=== PATIENT | male | born 1955 | race Caucasian/White ===

== ENCOUNTER 2017-12-07 06:56 | Day surgery (SDC) | payer BC ==
[~2017-12-07] VITALS: Ht 172.7 cm; Wt 67.5 kg
[~2017-12-07 06:56] MED LIST: HCTZ PO
[2017-12-07 07:11] VITALS: BP 142/98; PULSE 67; TEMP 97.9
[2017-12-07] MEDS ORDERED: ZESTRIL 10MG10 MG PO (07:20)
[2017-12-07] MEDS ORDERED: MULTIPLE VITAMI1 TA5 PO (07:20)
[2017-12-07] MEDS ORDERED: THE MEDICINE S200 M2 PO (07:20)
[2017-12-07] MEDS ORDERED: LIPITOR 10MG10 MG PO (07:20)
[2017-12-07] MEDS ORDERED: D-2000 90 MG-201 TAB PO (07:21)
[2017-12-07 08:40] VITALS: BP 119/83; PULSE 72; TEMP 97.6
[2017-12-07 08:55] VITALS: BP 118/84; PULSE 66
[2017-12-07 09:10] VITALS: BP 122/79; PULSE 70
== END 2017-12-07 09:30 | disposition home or self-care (01) ==
LOC: SDCO 06:56
DX: Z12.11 Encounter for screening for malignant neoplasm of colon (principal); D12.8 Benign neoplasm of rectum; K57.30 Diverticulosis of large intestine without perforation or abscess without bleeding; I10 Essential (primary) hypertension; E78.00 Pure hypercholesterolemia, unspecified; K58.9 Irritable bowel syndrome, unspecified; I48.91 Unspecified atrial fibrillation; F41.9 Anxiety disorder, unspecified; Z86.718 Personal history of other venous thrombosis and embolism; Z80.52 Family history of malignant neoplasm of bladder; Z80.0 Family history of malignant neoplasm of digestive organs; Z82.61 Family history of arthritis; Z82.3 Family history of stroke; Z87.891 Personal history of nicotine dependence
CPT/HCPCS: OP; J2250; J3010; J7030

== ENCOUNTER → 2018-11-01 | Outpatient (CLI) | payer BC ==
[~2018-11-01] MED LIST changes: +D-2000 90 MG-201 TAB PO; +LIPITOR 10MG10 MG PO; +MULTIPLE VITAMI1 TA5 PO; +THE MEDICINE S200 M2 PO; +ZESTRIL 10MG10 MG PO
== END ==
LOC: COL.RAD 14:55
DX: N43.3 Hydrocele, unspecified (principal)